=== PATIENT | female | born 1955 | race Caucasian/White ===

== ENCOUNTER → 2020-09-25 14:49 | Outpatient (BNVA) | payer BC, SELFPAY | PROVIDERS: Family Provider Family Medicine; Visit Provider Nurse Practitioner | DX: N39.0 Urinary tract infection, site not specified (principal); R31.9 Hematuria, unspecified | CPT/HCPCS: 81000 ==

== ENCOUNTER → 2023-04-21 12:24 | Outpatient (BNVA) | payer MEDICARE, SELFPAY | PROVIDERS: Family Provider Family Medicine; PCP Internal Medicine; Referring Provider Internal Medicine; Visit Provider Internal Medicine | DX: R07.9 Chest pain, unspecified (principal); I48.91 Unspecified atrial fibrillation; I45.10 Unspecified right bundle-branch block | CPT/HCPCS: 36415; 80048; 83880; 93005; 99204 ==

== ENCOUNTER 2023-05-15 09:05 | Outpatient (CLI) | payer MEDICARE, SELFPAY ==
--- NOTE | 2023-05-15 09:30 | USCV_ITS ---
[place] Age: 67 Gender: F : 1955 Exam Date: 05/15/2023 09:18 Ordering Phys: Isaac Banda M.D ([email or web address]) Technologist: CT Exam Location: [facility] [place] Indication: sob BP: 142 / 80 HR: 80 Rhythm: Atrial fibrillation Technical Quality: Good MEASUREMENTS (Male / Female) Normal Values 2D ECHO LVOT Diameter 2.1 cm LV Ejection Fraction MOD 2C 64.7 % LV Ejection Fraction 2C AL 68.8 % LA Diameter 4.8 cm RA Systolic Volume 4C AL 71.7 ml RA Systolic Volume 4C MOD 69.3 ml Aorta at Sinotubular Diameter 2.5 cm IVC Diameter 1.8 cm M-MODE LA Ao Ratio MM 1.6 AV Cusp Separation MM 2.3 cm DOPPLER AV Peak Velocity 125.0 cm/s LVOT Peak Velocity 70.0 cm/s AV Area Cont Eq vti 2.2 cm squared AV Area Cont Eq pk 1.9 cm squared MV Area PHT 4.3 cm squared Mitral E to A Ratio 75.3 TV Peak Velocity 301.0 cm/s TR Peak Velocity 481.0 cm/s TR Peak Gradient 92.5 mmHg TV Peak E Velocity 93.0 cm/s Right Atrial Pressure 3.0 mmHg Pulmonary Artery Systolic Pressu 95.5 mmHg PV Peak Velocity 77.0 cm/s FINDINGS Left Ventricle Left ventricle is normal in size. LV systolic function is normal with EF 55 to 60%. No regional wall motion abnormalities are seen. Right Ventricle Normal in size and function. Right Atrium Normal in size. Left Atrium Normal in size. Mitral Valve Moderate to severe mitral annular calcification seen. Mild mitral regurgitation. Aortic Valve Structurally normal aortic valve. Mild aortic regurgitation Tricuspid Valve Moderate tricuspid regurgitation. RVSP is 35-40mmHg. This is consistent with mild pulmonary hypertension. Pulmonic Valve Not well-visualized. Pericardium Normal Aorta Normal in size IVC Appears to be normal CONCLUSIONS LV systolic function is normal with EF of 55-60% Mild mitral regurgitation Mild aortic regurgitation Moderate tricuspid regurgitation. Mild pulmonary hypertension Compared to prior echocardiogram from 2016, mild aortic regurgitation and mild pulmonary hypertension seen. Isaac Banda MD (Electronically Signed) Final Date: 23 May 2023 20:33 S
== END 2023-05-15 09:06 | disposition home or self-care (01) ==
LOC: RAD 09:05
PROVIDERS: Family Provider Family Medicine; PCP Internal Medicine; Visit Provider Internal Medicine
DX: I08.3 Combined rheumatic disorders of mitral, aortic and tricuspid valves (principal)
CPT/HCPCS: 93306

== ENCOUNTER → 2023-07-01 14:52 | Outpatient (BNVA) | payer MEDICARE, SELFPAY | PROVIDERS: Family Provider Family Medicine; PCP Internal Medicine; Visit Provider Internal Medicine | DX: I48.91 Unspecified atrial fibrillation (principal); I10 Essential (primary) hypertension; Z91.148 Patient's other noncompliance with medication regimen for other reason; F17.200 Nicotine dependence, unspecified, uncomplicated; Z79.01 Long term (current) use of anticoagulants | CPT/HCPCS: 99214 ==

== ENCOUNTER 2023-07-24 10:49 | Day surgery (SDC) | payer MEDICARE, SELFPAY ==
--- NOTE | 2023-07-24 10:58 | ECG_ITS ---
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 Measurements Intervals [place] Rate: 89 P: 0 OK: 0 QRS: 18 QRSD: 96 T: 44 QT: 399 QTc: 486 Interpretive Statements ATRIAL FIBRILLATION LOW QRS VOLTAGE IN PRECORDIAL LEADS [QRS DEFLECTION < 1.0 mV IN CHEST LEADS] PATTERN CONSISTENT WITH PULMONARY DISEASE Compared to ECG 04/21/2023 12:34:30 Low QRS voltage now present Incomplete right bundle-branch block no longer present Electronically Signed On 07-24-2023 19:16:00 CDT by Lety Smith M.D. [email or web address].[email or web address]/store/[id number]
[2023-07-24 11:05] VITALS: BP 133/96; PULSE 90; RESP 14; TEMP 36.7; O2SAT 95
[2023-07-24 11:18] VITALS: BMI 19.1
--- NOTE | 2023-07-24 11:21 | USCV_ITS ---
[place] Donaldson Age: 67 Gender: F : 1955 Exam Date: 07/24/2023 12:52 Ordering Phys: Isaac Banda M.D ([email or web address]) Technologist: Jess Moody [place] [facility] [place]: afib BP: / HR: Rhythm: Sinus Technical Quality: Adequate MEASUREMENTS (Male / Female) Normal Values Medications Per anesthesia team Complications None Proc. Components After anesthesia team sedated patient, we proceeded with advancing LACEY probe. FINDINGS Left Ventricle Left ventricle is normal in function. Right Ventricle Normal size and function Right Atrium Normal studies Left Atrium Dilated LA Appendage No left atrial appendage thrombus IA Septum Normal. No interatrial shunting on bubble Mitral Valve Structurally normal mitral valve. Aortic Valve Structurally normal aortic valve. Tricuspid Valve Structurally normal Pulmonic Valve Not well visualized Pericardium Normal Aorta CONCLUSIONS LV systolic function is normal Left atrium is dilated No left atrial appendage thrombus No interatrial shunting on bubble Isaac Banda MD (Electronically Signed) Final Date: 26 July 2023 12:26 S
--- NOTE | 2023-07-24 11:50 | ANES.PREANE2 ---
Pre-Anesthetic Assessment Height/Weight: Height 1.78 m Weight 60.328 kg Operation Date: 07/24/23 12:30 Proposed Procedures p LACEY 88892,46466,I48.91(Not Applicable) - Isaac Banda M.D s Cardioversion(Not Applicable) - Isaac Banda M.D Last intake: Intake Last Liquid Date 07/23/23 Last Liquid Time 19:00 Last Solid Date 07/23/23 Last Solid Time 19:00 Social No alcohol and No tobacco Exam alert, oriented x 3 and clear to auscultation bilaterally Irregular rate/rhythm Airway Submandibular: within normal limits Cervical ROM: within normal limits Mallampati: Class I Pulmonary None reported CV/HEM Atrial Fibrillation and Congestive Heart Failure Neuropsych Transient Ischemic Attack Anesthetic Plan ASA status: 3 Anesthesia: MAC Medications/Allergies Home Medications Medication Instructions Recorded Confirmed Last Taken Type atorvastatin 10 mg tablet 10 mg PO DAILY 09/25/20 07/22/23 07/21/23 History lisinopril 20 mg tablet 20 mg PO DAILY 09/25/20 07/22/23 07/21/23 History magnesium 200 mg tablet 200 mg PO DAILY 07/16/22 07/22/23 Unknown History Vit B-12 1 tab PO DAILY 04/21/23 07/22/23 07/21/23 History apixaban 5 mg tablet (Eliquis) 5 mg PO DAILY 07/15/23 07/22/23 07/21/23 History conjugated estrogens 0.45 mg 0.45 mg PO DAILY 07/15/23 07/22/23 07/21/23 History tablet (Premarin) furosemide 20 mg tablet (Lasix) 20 mg PO DIRECTED PRN swelling 07/15/23 07/22/23 Unknown History metoprolol succinate 100 mg 100 mg PO DAILY 07/15/23 07/22/23 07/21/23 History tablet,extended release 24 hr potassium chloride 20 mEq 20 meq PO DAILY PRN with lasix 07/15/23 07/22/23 Unknown History tablet,extended release amiodarone 200 mg tablet 200 mg PO BID 07/22/23 07/22/23 07/22/23 History chlorpheniramine maleate 4 mg 4 mg PO Q12H 07/22/23 07/22/23 07/22/23 History tablet Allergies Allergy/AdvReac Type Severity Reaction Status Date / Time cephalexin [From Keflex] Allergy ALGY-Hives Verified 07/22/23 10:37 [facility] Anesthesia Social History Smoking and tobacco/nicotine status: current every day tobacco/nicotine user Data Anesthesia Cardiac Studies: Echocardiogram 05/15/23
[2023-07-24] MEDS: sodium chloride 0.9% 1,000 ML 30 ML IV (11:52)
[2023-07-24] MEDS: apixaban 5 mg Tablet PO (11:53)
--- NOTE | 2023-07-24 12:04 | W.PM.OPSUD ---
Surgery/Procedure H&P Update DATE OF PROCEDURE: July 24, 2023 DATE H&P PERFORMED: 07/01/23 H&P UPDATE INFORMATION: I have reviewed H&P completed within last 30 days, I have examined patient prior to procedure and No changes to prior documentation PREOP DIAGNOSIS: Atrial fibrillation PRIMARY INDICATION FOR PROCEDURE: Atrial fibrillation PLANNED PROCEDURE: Operation Date: 07/24/23 12:30 Proposed Procedures p LACEY 89920,90646,I48.91(Not Applicable) - Jaguar Govea Cardioversion(Not Applicable) - Isaac Banda M.D Anesthesia team available for sedation
[2023-07-24] MEDS: ipratropium-albuterol 3 mL Neb INHALATION (12:17)
[2023-07-24 12:19] VITALS: PULSE 90; RESP 19; O2SAT 94
[2023-07-24 12:24] VITALS: PULSE 95
[2023-07-24 13:04] VITALS: BP 90/50; PULSE 63; RESP 14; TEMP 36.2; O2SAT 99
--- NOTE | 2023-07-24 13:06 | PM.PROC ---
Procedure Note: Date of procedure: 07/24/23 Pre-procedure diagnosis: Atrial fibrillation Post-procedure diagnosis: other (Normal sinus rhythm) Procedure: Procedure detail: After anesthesia team sedated the patient, we proceeded with transesophageal echocardiogram. Left atrial appendage thrombus was ruled out. We then proceeded with synchronized 200J shock x 1. She converted back to normal sinus rhythm. Performing Provider: Isaac Banda Complications: None Condition: stable Disposition: same day Coding Level of Care Code Acute Code for Sasha Gallego
--- NOTE | 2023-07-24 13:06 | ANE.PACU2 ---
Inpatient post-anesthesia follow up: Airway intact: Yes Vital signs: Temperature 98.1 F Pulse Rate 95 Respiratory Rate 19 Blood Pressure 133/96 Pulse Oximetry 94 Oxygen Delivery Me thod Nasal Cannula Oxygen Flow Rate 0.5 Fraction of Inspir ed Oxygen Hydration adequate: Yes Nausea and vomiting: No Pain level: 1 Mental status: Baseline
[2023-07-24 13:19] VITALS: BP 109/65; PULSE 70; RESP 25; O2SAT 98
[2023-07-24 13:35] VITALS: BP 127/73; PULSE 68; RESP 18; TEMP 36.9; O2SAT 97
--- NOTE | 2023-07-24 13:42 | ECG_ITS ---
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 Measurements Intervals [place] Rate: 68 P: 88 ND: 313 QRS: 23 QRSD: 105 T: 50 QT: 446 QTc: 474 Interpretive Statements SINUS RHYTHM WITH FIRST DEGREE AV BLOCK Compared to ECG 07/24/2023 11:07:13 First degree AV block now present Atrial fibrillation no longer present Electronically Signed On 07-24-2023 19:19:00 CDT by Lety Smith M.D. [id number]
== END 2023-07-24 14:02 | disposition home or self-care (01) ==
PROVIDERS: Family Provider Family Medicine; PCP Internal Medicine; Visit Provider Internal Medicine
PROC: (CPT 93312; principal; 2023-07-24 12:30)
PROC: 5A2204Z Restoration of Cardiac Rhythm, Single (ICD-10-PCS; 2023-07-24 12:30)
DX: I48.91 Unspecified atrial fibrillation (principal); I11.0 Hypertensive heart disease with heart failure; I50.9 Heart failure, unspecified; Z86.73 Personal history of transient ischemic attack (TIA), and cerebral infarction without residual deficits; F17.200 Nicotine dependence, unspecified, uncomplicated
CPT/HCPCS: 92960; 93005; 93312; 93320; 93325; 94640; J2704; J7030

== ENCOUNTER → 2023-08-24 12:59 | Outpatient (BNVA) | payer MEDICARE, SELFPAY | PROVIDERS: Family Provider Family Medicine; PCP Internal Medicine; Visit Provider Internal Medicine | DX: I48.91 Unspecified atrial fibrillation (principal); G45.9 Transient cerebral ischemic attack, unspecified; I10 Essential (primary) hypertension; Z79.01 Long term (current) use of anticoagulants; Z72.0 Tobacco use | CPT/HCPCS: 99214 ==

== ENCOUNTER → 2024-01-18 10:45 | Outpatient (BNVA) | payer MEDICARE, SELFPAY | PROVIDERS: Family Provider Family Medicine; PCP Internal Medicine; Visit Provider Nurse Practitioner Family | DX: I10 Essential (primary) hypertension (principal); I48.0 Paroxysmal atrial fibrillation; R06.09 Other forms of dyspnea; F17.210 Nicotine dependence, cigarettes, uncomplicated; Z79.01 Long term (current) use of anticoagulants | CPT/HCPCS: 99214 ==